=== PATIENT | male | born 1955 | race Caucasian/White ===

== ENCOUNTER 2023-12-09 19:30 | Emergency (ER) | payer MEDICARE, BC ==
[2023-12-09 20:39] VITALS: RESP 18; TEMP 98.5
--- NOTE | 2023-12-09 21:35 | XR ---
EXAMINATION TYPE: XR ankle complete RT DATE OF EXAM: 12/09/2023 8:57 PM CLINICAL INDICATION:Male, 68 years old with history of injury; COMPARISON: None TECHNIQUE: XR ankle complete RT; ankle is imaged in frontal, lateral and oblique projections. FINDINGS: There is no evidence of acute osseous pathology. No evidence of subluxation or dislocation. Soft tis sues edema in Kager's fat pad. No radiopaque foreign bodies are identified. 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 Calcane al plantar spurring is present. IMPRESSION: 1. No evidence of acute fracture. 2. Edema within Kager's fat pad , further evaluation with MRI may be warranted for soft tissue evalua tion.
--- NOTE | 2023-12-09 22:01 | ED ---
Lower Extremity Injury HPI - General Chief Complaint: Extremity Injury, Lower Stated Complaint: Rt ankle pain Time Seen by Provider: 12/09/23 20:08 Source: patient Mode of arrival: ambulatory - History of Present Illness Initial Comments: 68-year-old male presenting with chief complaint of right ankle pain. Patient was playing pickle ball when he felt and heard a "pop". He is having discomfort to the posterior portion of the ankle. He is able to ambulate with a flatfoot but is unable to plantarflex and dorsiflex. No numbness or tingling. - Related Data Allergies Allergy/AdvReac Type Severity Reaction Status Date / Time No Known Allergies Allergy Verified 12/09/23 20:07 Review of Systems ROS Statement: Those systems with pertinent positive or pertinent negative responses have been documented in the HPI. ROS Other: All systems not noted in ROS Statement are negative. General Exam Limitations: no limitations General appearance: alert, in no apparent distress Head exam: Present: atraumatic, normocephalic Eye exam: Present: normal appearance, EOMI Neck exam: Present: normal inspection. Absent: meningismus Respiratory exam: Absent: respiratory distress Cardiovascular Exam: Present: regular rate Extremities exam: Present: other (Positive Carvajal test) Right Ankle exam: Present: tenderness. Absent: full ROM, swelling, deformity Neurological exam: Present: alert, oriented X3 Psychiatric exam: Present: normal affect, normal mood Skin exam: Present: warm, dry Course Vital Signs 12/09/23 12/09/23 20:01 22:13 Temperature 98.5 F 98.5 F Pulse Rate 63 65 Respiratory 18 18 Rate Blood Pressure 162/78 158/77 O2 Sat by Pulse 100 100 Oximetry Medical Decision Making - Medical Decision Making Was pt. sent in by a medical professional or institution (, PA, PROPERTY MANAGER, urgent care, hospital, or custodial...) When possible be specific @ -No Did you speak to anyone other than the patient for history (EMS, parent, family, police, friend...)? What history was obtained from this source @ -No Did you review nursing and triage notes (agree or disagree)? Why? @ -I reviewed and agree with nursing and triage notes Were old charts reviewed (outside hosp., previous admission, EMS record, old EKG, old radiological studies, urgent care reports/EKG's, custodial records)? Report findings @ -No old charts were reviewed Differential Diagnosis (chest pain, altered mental status, abdominal pain women, abdominal pain men, vaginal bleeding, weakness, fever, dyspnea, syncope, headache, dizziness, GI bleed, back pain, seizure, CVA, palpatations, mental health, musculoskeletal)? @ -Differential Musculoskeletal Muscular strain, contusion, ligament sprain, fracture, arthritis, septic arthritis, bursitis, cellulitis, muscle spasm, nerve compression, DVT, arterial occlusion, herpes zoster, electrolyte abnormality, tumor.... This is not meant to be in all inclusive list EKG interpreted by me (3pts min.). @ -As above X-rays interpreted by me (1pt min.). @ -X-ray shows no evidence of acute fracture. Edema within Kager's fat pad. Further evaluation with MRI may be warranted for soft tissue eval CT interpreted by me (1pt min.). @ -None done U/S interpreted by me (1pt. min.). @ -None done What testing was considered but not performed or refused? (CT, X-rays, U/S, labs)? Why? @ -None What meds were considered but not given or refused? Why? @ -None Did you discuss the management of the patient with other professionals (professionals i.e. , PA, PROPERTY MANAGER, lab, RT, psych nurse, social insurance administrator, fabric cutter, teacher, security officer, caser up)? Give summary @ -No Was smoking cessation discussed for >3mins.? @ -No Was critical care preformed (if so, how long)? @ -No Were there social determinants of health that impacted care today? How? (Homelessness, low income, unemployed, alcoholism, drug addiction, transportation, low edu. Level, literacy, decrease access to med. care, shelter, rehab)? @ -No Was there de-escalation of care discussed even if they declined (Discuss DNR or withdrawal of care, Hospice)? DNR status @ -No What co-morbidities impacted this encounter? (DM, HTN, Smoking, COPD, CAD, Cancer, CVA, ARF, Chemo, Hep., AIDS, mental health diagnosis, sleep apnea, morbid obesity)? @ -None Was patient admitted / discharged? Hospital course, mention meds given and route, prescriptions, significant lab abnormalities, going to OR and other pertinent info. @ -68-year-old male presenting with chief complaint of right ankle pain while playing pickle ball. Patient heard a pop. He is having tenderness near the posterior portion of the ankle. He has a positive Carvajal test. No fracture seen on x-ray but there is edema within Kager's fat pad. Patient is placed in a posterior short leg splint and provided with crutches. Instructed to remain nonweightbearing and is provided with information for orthopedic follow-up. Discharged home. Follow-up with PCP and ortho. Report back to ER with any new or worsening symptoms. Discussed return parameters and answered all questions. Patient conveyed verbal understanding and agreed to the plan. I discussed this case in detail with my attending Dr. Luu Undiagnosed new problem with uncertain prognosis? @ -No Drug Therapy requiring intensive monitoring for toxicity (Heparin, Nitro, Insulin, Cardizem)? @ -No Were any procedures done? @ -No Diagnosis/symptom? @ -Achilles tendon injury Acute, or Chronic, or Acute on Chronic? @ -Acute Uncomplicated (without systemic symptoms) or Complicated (systemic symptoms)? @ -Uncomplicated Side effects of treatment? @ -No Exacerbation, Progression, or Severe Exacerbation? @ -No Poses a threat to life or bodily function? How? (Chest pain, [place], NH, pneumonia, PE, COPD, DKA, ARF, appy, cholecystitis, CVA, Diverticulitis, Homicidal, Suicidal, threat to staff... and all critical care pts) @ -Low likelihood Disposition Clinical Impression: Achilles tendon injury Disposition: HOME SELF-CARE Condition: Good Instructions (If sedation given, give patient instructions): Achilles Tendon Rupture (ED) Additional Instructions: Follow-up with orthopedics, call the office on Monday. Report back to ER with any new or worsening symptoms. Take Motrin and Tylenol as needed for pain control. Remain nonweightbearing on the right leg Is patient prescribed a controlled substance at d/c from ED?: No Referrals: None,Stated [Primary Care Provider] - 1-2 days Rober Gates MD [Medical Doctor] - 1-2 days Time of Disposition: 22:01
[2023-12-09 22:19] VITALS: BP 158/77; PULSE 65
== END 2023-12-09 22:14 | disposition home or self-care (01) ==
LOC: EC 19:30
DX: S86.001A Unspecified injury of right Achilles tendon, initial encounter (principal); X50.9XXA Other and unspecified overexertion or strenuous movements or postures, initial encounter
CPT/HCPCS: 99283